=== PATIENT | male | born 1975 | race African-American/Black ===

== ENCOUNTER 2016-04-26 08:43 | Emergency (ER) | payer OTHER ==
[2016-04-26 08:50] VITALS: TEMP 98; BMI 25.8
--- NOTE | 2016-04-26 08:53 | PDOC ---
History of Present Illness - History of Present Illness Initial Comments: 04/26/16 09:42 The patient is a 41 year old male with a past medical hx of HTN who presents to the ED via EMS for evaluation of elevated blood pressure. The patient reports he thought his blood pressure was better so he has not taken his blood pressure medication in a very long time. The patient reports an intense headache. He said I cannot talk to you anymore because the pain is so bad and then started to seize a few seconds later. The hx is limited because of the seizure. Allergies: NKDA. Surgical: None PCP: Dr. Gabriel <Sabiha Szymanski - Last Filed: 04/26/16 10:40> <Keith Chavira - Last Filed: 04/26/16 11:43> - General Chief Complaint: Blood Pressure Problem Stated Complaint: HTN Time Seen by Provider: 04/26/16 08:52 Past History <Sabiha Szymanski - Last Filed: 04/26/16 10:40> - Past Medical History HTN: Yes (NON COMPLAINT) - Psycho/Social/Smoking Cessation Hx Suicidal Ideation: No Smoking History: Never smoked Have you smoked in the past 12 months: No Information on smoking cessation initiated: No Hx Alcohol Use: No Drug/Substance Use Hx: No <Keith Chavira - Last Filed: 04/26/16 11:43> - Past Medical History Allergies/Adverse Reactions: Allergies Allergy/AdvReac Type Severity Reaction Status Date / Time No Known Allergies Allergy Verified 04/26/16 08:48 Home Medications: Ambulatory Orders NK [No Known Home Medication] 04/26/16 Review of Systems - Review of Systems Able to Perform ROS?: No (seizure) Comments:: 04/26/16 09:42 NEUROLOGIC: + headache <Sabiha Szymanski - Last Filed: 04/26/16 10:40> *Physical Exam - Vital Signs Last Vital Signs Temp Pulse Resp BP Pulse Ox 98 F 103 H 20 231/131 96 04/26/16 08:48 04/26/16 08:48 04/26/16 08:48 04/26/16 08:48 04/26/16 08:48 - Physical Exam Comments: 04/26/16 10:34 GENERAL: +Acute distress. Awake, alert, and fully oriented. HEAD: No signs of trauma EYES: +Constricted pupils, sclera anicteric, conjunctiva clear ENT: Auricles normal inspection, hearing grossly normal, nares patent, oropharynx clear without exudates. Moist mucosa LUNGS: Breath sounds equal, clear to auscultation bilaterally. No wheezes, and no crackles HEART: Regular rate and rhythm, normal S1 and S2, no murmurs, rubs or gallops ABDOMEN: Soft, nontender, normoactive bowel sounds. EXTREMITIES: Normal range of motion, no edema. No clubbing or cyanosis. No cords, erythema, or tenderness NEUROLOGICAL:+Could not obtain secondary to seizure. <Sabiha Szymanski - Last Filed: 04/26/16 10:40> - Vital Signs Last Vital Signs Temp Pulse Resp BP Pulse Ox 98 F 103 H 20 231/131 96 04/26/16 08:48 04/26/16 08:48 04/26/16 08:48 04/26/16 08:48 04/26/16 08:48 <Keith Chavira - Last Filed: 04/26/16 11:43> ED Treatment Course - LABORATORY CBC & Chemistry Diagram: 04/26/16 09:21 04/26/16 09:21 - RADIOLOGY Radiograph Interpretation: 04/26/16 10:00 Single portable chest x-ray. Patient is intubated. The tip of ET tube above bifurcation of the trachea, the tip projecting over the T3 vertebral body. No evidence of pneumothorax. Cardiomegaly. No effacement of the diaphragms, or blunting of the costophrenic angles. No airspace opacities are seen in the visualized lungs. Limited evaluation of the lung parenchyma in the left retrocardiac region. EKG leads are noted. Impression. Status post intubation, no evidence of pneumothorax. Cardiomegaly. No evidence of CHF. No airspace opacities are seen in the visualized lungs. Limited evaluation of the lung parenchyma in the left retrocardiac region. Reported By: Cali Khoury MD 04/26/16 0956 04/26/16 10:02 CT scan of the brain without intravenous contrast No prior is available for comparison. There is a large acute/subacute hemorrhage occupying most of the dick and the mesencephalon. There is intraventricular hemorrhage with blood mainly seen within the fourth and third ventricle with minimal extension into the lateral ventricles through the foramen of Monro. Mild dilatation of the lateral ventricles/hydrocephalus likely due to the presence of blood within the lateral and third ventricles. Hemorrhage is also extending through the foramina of Luschka and Magendie into the craniocervical junction around included proximal aspect of the cervical cord, likely intradural space. Both cerebral hemispheres appear unremarkable. Minimal mucosal thickening in the ethmoid air cells. The mastoid air is is a well aerated and the calvarium is intact IMPRESSION: Large acute hemorrhage centered within the dick extending to the mesencephalon and medulla oblongata with intraventricular hemorrhage mainly seen in the fourth and third ventricle and with probable minimal hemorrhage extending into the lateral ventricles through the foramen of Monro. Mild dilatation of the lateral ventricles suggestive of noncommunicating hydrocephalus due to the presence of blood within the third and fourth ventricle. Blood is also extending inferiorly to the craniocervical junction involving the proximal/superior aspect of the cervical subdural space. Case was immediately discussed with Dr. Keith Chavira , emergency room caring attending physician. Reported By: Hilaria Poon MD 04/26/16 0955 <Sabiha Szymanski - Last Filed: 04/26/16 10:40> - LABORATORY CBC & Chemistry Diagram: 04/26/16 09:21 04/26/16 09:21 <Keith Chavira - Last Filed: 04/26/16 11:43> Medical Decision Making - Medical Decision Making 04/26/16 10:11 The patient is a 41 year old male with a past medical hx of HTN who presents to the ED via EMS for evaluation of elevated blood pressure. The patient has not been compliant with his medication in a long time because he believed his pressure was better. The patient was responsive to some questions while in the ED upon arrival. He reported an intense headache and said I cannot talk to you right now because the pain is too bad. The patient then began to seizure and became unconscious a few seconds later. His blood pressure was 230/130 upon arrival. The patient was intubated RICKI and continued to seize prior to RSI meds. Chest X-Ray obtained, which showed the tube is in good placement. The patient was sent directly to CT scan, which shows a large bleed. The plan is to transfer the patient to [facility], call placed at [phone]. Elizabeth called back at [phone], discussed patient's case with the Dr. Felton, who accepted the patient. Placed a call to the patients , Blake, at [phone]. The number called: . The did not pickling operator. Placed a second call to the at [phone]. The did not pickling operator. <Sabiha Szymanski - Last Filed: 04/26/16 10:40> - Medical Decision Making 04/26/16 11:25 Patient was awake and alert on arrival with BP of 230/130 I ask him two questions and he said I am sorry doctor, I can not talk to you, the pain is too strong, he turned on his side and began to seize. He was intubated immediately using rapid sequence meds and a glidescope. He was given IV Labatalol, Ativan and placed on a labetalol drip. He was also given Keppra and Valium. He was rushed to CT where a large bleed involving the dick, medulla and midbrain with blood moving through the foramen ovale to surround the upper cervical spine. Blood was traveling through the third, fourth and lateral ventricles. Today we have no neurosurgical coverage so [facility] was contacted where Dr Felton accepted the patient in transfer. [facility] sent their critical care trasport to retrieve him. [employer] support and pressure control as well as seizure control were continued here in the ED until transport arrived when report was given and care was transferred. The patient's sister did arrive just before the transport arrived. I did support her emotionally as the news about what was going on was obviously devistating to her. The transport ambulance did offer to take her on the ambulance so that she would not have to drive. Our Security department secured her car for her. The patient was transferred without incident. His prognosis is grave. <Keith Chavira - Last Filed: 04/26/16 11:43> *DC/Admit/Observation/Transfer - Attestations Scribe Attestion: 04/26/16 09:27 Documentation prepared by Sabiha Szymanski, acting as medical staff specialist for Keith Chavira MD/DO. <Sabiha Szymanski - Last Filed: 04/26/16 10:40> - Attestations Physician Attestion: 04/26/16 08:53 I, Dr. Keith Chavira, attest that this document has been prepared under my direction and personally reviewed by me in its entirety. I further attest, that it accurately reflects all work, treatment, procedures and medical decision -making performed by me. <Keith Chavira - Last Filed: 04/26/16 11:43> Diagnosis at time of Disposition: Hypertensive intracerebral hemorrhage - Referrals Referrals: Rosana Pratt MD [Primary Care Provider] -
[2016-04-26] MEDS ORDERED: LORAZEPAM CARPU-JECT 2 MG/ML DISP.SYRIN ONE ×3 (08:57→09:16)
[2016-04-26] MEDS ORDERED: LABETALOL HCL 5 MG/1 ML (100MG/20 ML VIAL) IVPUSH ONE (08:58)
[2016-04-26] MEDS ORDERED: LABETALOL HCL INJECTION 1,000 MG in SODIUM CHLORIDE 800 ML IV SCH (09:00)
[2016-04-26] MEDS ORDERED: LORAZEPAM CARPU-JECT 2 MG/ML DISP.SYRIN IVPUSH ONE ×3 (09:00→09:34)
[2016-04-26] MEDS ORDERED: ASPIRIN 81 MG CHEWABLE TABLETS PO ONE (09:03)
[2016-04-26] MEDS ORDERED: SODIUM CHLORIDE 1,000 ML IV STA (09:03)
[2016-04-26] MEDS ORDERED: LABETALOL HCL 5 MG/1 ML (200MG/40ML VIAL) IVPB ONE (09:05)
[2016-04-26] MEDS ORDERED: RAPID SEQUENCE INTUBATION KIT NR ONE (09:08)
[2016-04-26] MEDS ORDERED: morphine CARPU-JECT 10 MG/1 ML DISP.SYRIN ONE (09:13)
[2016-04-26] MEDS ORDERED: diazePAM CARPU-JECT 10 MG/2 ML DISP.SYRIN ONE ×3 (09:20→10:54)
[2016-04-26] MEDS ORDERED: ETOMIDATE 40 MG/20 ML VIAL IVPUSH ONE (09:27)
[2016-04-26] MEDS ORDERED: SUCCINYLCHOLINE CHLORIDE 200 MG/10 ML VIAL IVPUSH ONE (09:27)
[2016-04-26] MEDS ORDERED: morphine CARPU-JECT 2 MG/1 ML DISP.SYRIN IVPUSH ONE (09:33)
[2016-04-26] MEDS ORDERED: ROCURONIUM BROMIDE 50 MG/5 ML VIAL IV ONE (09:33)
[2016-04-26 09:38] LABS: BASOPHIL 0.6 % (0-2.0); EOSINOPHIL 1.9 % (0-4.5); MCH 28.6 pg (25.7-33.7); MCHC 32.9 g/dl (32.0-35.9); MEAN CELL VOLUME 86.7 fl (80-96); MEAN PLT VOLUME 9.1 fl (7.5-11.1); NEUTROPHILS 46.4 % (42.8-82.8); PLATELET COUNT 212 K/MM3 (134-434); RDW 14.6 % (11.9-15.9); WHITE BLOOD COUNT 9.9 K/mm3 (4.0-10.0)
[2016-04-26 09:59] LABS: ALBUMIN 4.4 g/dl (3.4-5.0); CALCIUM 9.2 mg/dL (8.5-10.1); CREATININE 2.3 mg/dL (0.7-1.3)
[2016-04-26 10:03] LABS: INR 1.07 (0.82-1.09); PROTHROMBIN TIME (PATIENT) 11.8 SEC (9.98-11.88)
[2016-04-26 10:14] LABS: BILIRUBIN,TOTAL 1.1 mg/dL (0.2-1.0); TOT PROT 8.1 g/dl (6.4-8.2)
[2016-04-26] MEDS ORDERED: PROPOFOL 100 ML IVPB SCH (10:15)
[2016-04-26 10:20] LABS: TROPONIN I 1.19 ng/ml (0.00-0.05)
[2016-04-26] MEDS ORDERED: PROPOFOL 100 ML ONE (10:30)
[2016-04-26] MEDS ORDERED: levETIRAcetam 500 MG/5 ML INJECTION VIAL IVPB ONE ×2 (10:32→10:38)
[2016-04-26] MEDS ORDERED: diazePAM CARPU-JECT 10 MG/2 ML DISP.SYRIN IVPUSH ONE ×2 (10:39→11:24)
[2016-04-26 11:09] VITALS: BP 173/119; PULSE 90
== END 2016-04-26 11:25 | disposition short-term general hospital (02) ==
LOC: JER 08:43
PROC: 3E0337Z Introduction of Electrolytic and Water Balance Substance into Peripheral Vein, Percutaneous Approach (ICD-10-PCS; principal; 2016-04-26)
PROC: 3E033GC Introduction of Other Therapeutic Substance into Peripheral Vein, Percutaneous Approach (ICD-10-PCS; 2016-04-26)
PROC: 3E033GC Introduction of Other Therapeutic Substance into Peripheral Vein, Percutaneous Approach (ICD-10-PCS; 2016-04-26)
PROC: 3E033NZ Introduction of Analgesics, Hypnotics, Sedatives into Peripheral Vein, Percutaneous Approach (ICD-10-PCS; 2016-04-26)
PROC: 0BH17EZ Insertion of Endotracheal Airway into Trachea, Via Natural or Artificial Opening (ICD-10-PCS; 2016-04-26)
DX: I61.8 Other nontraumatic intracerebral hemorrhage (principal)
CPT/HCPCS: 36415; 70450-TC; 71010-TC; 80053; 82550; 82553; 83735; 84484; 85025; 85610; 99285-25